=== PATIENT | male | born 1950 | race Caucasian/White ===

== ENCOUNTER 2020-07-08 09:23 | Emergency (ER) | payer OTHER ==
[~2020-07-08] VITALS: Ht 177.8 cm; Wt 82.6 kg
[2020-07-08] MEDS ORDERED: DIAZEPAM 5 MG TABLET PO ONE (10:00)
[2020-07-08] MEDS ORDERED: KETOROLAC 30 MG/1 ML IM ONE (10:00)
[2020-07-08] MEDS ORDERED: KETOROLAC 30 MG/1 ML ONE (10:04)
[2020-07-08] MEDS ORDERED: DIAZEPAM 5 MG TABLET ONE (10:04)
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
[2020-07-08 11:13] VITALS: BP 150/97
== END 2020-07-08 11:15 | disposition home or self-care (01) ==
LOC: ED 11:01
DX: M25.512 Pain in left shoulder (principal); M54.2 Cervicalgia; M47.9 Spondylosis, unspecified; Z87.891 Personal history of nicotine dependence
CPT/HCPCS: 72050; 73030; 96372; 99283; J1885